=== PATIENT | male | born 1960 | race Caucasian/White ===

== ENCOUNTER → 2020-07-12 | Outpatient (REF) ==
--- NOTE | 2020-07-12 11:23 | REP ---
INDICATION: DDD- D[facility]UV GROUP COMPARISON: None. TECHNIQUE: AP, lateral, bilateral oblique and sunrise views. FINDINGS: Moderate/early advanced tricompartmental osteoarthritic degenerative changes include cortical irregularity, osteophytosis, periarticular sclerosis, joint space narrowing and chondrocalcinosis. Findings predominately involving the tibiofemoral joint space and specifically the medial compartment. No acute fracture or dislocation. No obvious effusion. IMPRESSION: Moderate/early advanced tricompartmental osteoarthritic degenerative changes. <Electronically signed by Miguel A Carias > 07/12/20 111
--- NOTE | 2020-07-12 11:25 | REP ---
INDICATION: DDD- D[facility]UV GROUP COMPARISON: None. TECHNIQUE: AP, lateral, coned-down views of the lumbar spine. FINDINGS: Three views of the lumbosacral spine demonstrate satisfactory alignment and lordosis without acute fracture / compression injury or subluxation. Focal early advanced degenerative changes at L5-S1 includes endplate sclerosis, osteophytosis, disc space narrowing, and facet hypertrophy. IMPRESSION: 1. No acute fracture / compression injury or subluxation. 2. Focal early advanced degenerative changes at L5-S1. <Electronically signed by Miguel A Carias > 07/12/20 1124
== END ==
LOC: M RAD 10:23
PROVIDERS: ATTEND Internal Medicine
DX: M17.11 Unilateral primary osteoarthritis, right knee (principal); M51.37 Other intervertebral disc degeneration, lumbosacral region